=== PATIENT | male | born 1995 | race Caucasian/White ===

== ENCOUNTER 2022-08-30 08:53 | Emergency (ER) | payer MEDICAID ==
[~2022-08-30] VITALS: Ht 180.3 cm; Wt 84.1 kg
[~2022-08-30 08:53] MED LIST: NO HOME MEDS
[2022-08-30] MEDS ORDERED: TETanus/Pertussis (Acell)/Diphther VAC/PF (Tdap-Adult) 0.5ml syringe IMVAC ONE (09:10)
[2022-08-30] MEDS ORDERED: bacitracin 15gm ointment TP ONE (09:10)
--- NOTE | 2022-08-30 09:30 | NUR ---
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 RN applied c-colar. Pt now at [facility].
[2022-08-30] MEDS ORDERED: ibuprofen tablet 400 MG TABLET PO ONE (10:10)
[2022-08-30 10:54] VITALS: BP 148/78
== END 2022-08-30 11:10 ==
LOC: ER 08:53
DX: S20.211A Contusion of right front wall of thorax, initial encounter (principal); T14.8XXA Other injury of unspecified body region, initial encounter; R07.81 Pleurodynia; H53.2 Diplopia; R51.9 Headache, unspecified; M25.561 Pain in right knee; V89.2XXA Person injured in unspecified motor-vehicle accident, traffic, initial encounter; Y93.89 Activity, other specified; Y92.89 Other specified places as the place of occurrence of the external cause; Y99.8 Other external cause status
CPT/HCPCS: 70450; 71045; 72125; 73564; 73610; 90471; 90715; 99284; L0172; A6258